=== PATIENT | male | born 1975 | race American Indian/Alaskan Native ===

== ENCOUNTER 2016-09-21 06:14 | Inpatient (IN) | payer OTHER ==
[2016-09-21] MEDS ORDERED: ASPIRIN PO ONE (07:09)
[2016-09-21] MEDS ORDERED: MORPHINE IV ONE ×2 (07:09→11:04)
[2016-09-21] MEDS ORDERED: NITRO-BID 2% TP ONE (07:09)
[2016-09-21] MEDS ORDERED: ZOFRAN IV ONE (07:09)
--- NOTE | 2016-09-21 07:14 | Emergency Department Report ---
HPI - General Time Seen by Provider: 09/21/16 06:57 - HPI HPI: Room 19 The patient is a 41-year-old male presenting with a chief complaint of chest pain. The patient states he was walking and developed substernal squeezing chest pain associated with shortness of breath and diaphoresis. Patient states she may have gotten slightly nauseous. Patient states he "power walking" to the nearest convenience store and begs someone to call EMS. Patient states she still has punching pain which he gives a score of 11/10. The patient states he' s never had a stress test or cardiac catheterization Location: Chest Duration: Constant times today Quality: Squeezing, punching Severity: 11/10 Modifying factors: [see above] Context: [see above] Mode of transportation: [not driving] ED Past Medical Hx - Past Medical History Previous Medical History?: No - Surgical History Past Surgical History?: No - Family History Family history: no significant - Social History Smoking Status: Current Every Day Smoker Substance Use Type: None (denies illicit drug use), Alcohol ED Review of Systems ROS: Stated complaint: CHEST PAIN Other details as noted in HPI Comment: All other systems reviewed and negative Constitutional: diaphoresis Eyes: denies: eye pain, eye discharge, vision change ENT: denies: ear pain, throat pain Respiratory: shortness of breath Cardiovascular: chest pain Endocrine: no symptoms reported Gastrointestinal: nausea Genitourinary: denies: urgency, dysuria Musculoskeletal: denies: back pain, joint swelling, arthralgia Skin: denies: rash, lesions Neurological: denies: headache, weakness, paresthesias Psychiatric: denies: anxiety, depression Hematological/Lymphatic: denies: easy bleeding, easy bruising Physical Exam - Physical Exam Physical Exam: GENERAL: The patient is well-developed well-nourished male sitting on stretcher not appearing to be in acute distress. [] HEENT: Normocephalic. Atraumatic. Extraocular motions are intact. Patient has moist mucous membranes. NECK: Supple. Trachea midline CHEST/LUNGS: Clear to auscultation. There is no respiratory distress noted. HEART/CARDIOVASCULAR: Regular. There is no tachycardia. There is no gallop rub or murmur. ABDOMEN: Abdomen is soft, nontender. Patient has normal bowel sounds. There is no abdominal distention. SKIN: There is no rash. There is no edema. There is no diaphoresis. NEURO: The patient is awake, alert, and oriented. The patient is cooperative. The patient has normal speech MUSCULOSKELETAL: There is no evidence of acute injury. ED Medical Decision Making - Lab Data Result diagrams: 09/21/16 07:14 09/21/16 07:14 Laboratory Tests 09/21/16 09/21/16 09/21/16 07:14 07:14 07:14 WBC 4.6 RBC 4.81 Hgb 13.9 Hct 40.7 MCV 85 MCH 29 MCHC 34 RDW 13.7 Plt Count 160 Lymph % (Auto) 41.6 H Custer % (Auto) 9.1 H Eos % (Auto) 1.1 Baso % (Auto) 0.4 Lymph # 1.9 Custer # 0.4 Eos # 0.0 Baso # 0.0 Seg Neutrophils % 47.8 Seg Neutrophils # 2.2 D-Dimer 408.08 H Sodium 146 H Potassium 3.7 Chloride 106.9 Carbon Dioxide 18 L Anion Gap 25 BUN 13 Creatinine 0.9 Estimated GFR > 60 BUN/Creatinine Ratio 14.44 Glucose 84 Calcium 8.8 Total Creatine Kinase 5144 H CK-MB (CK-2) 39.4 H CK-MB (CK-2) Rel Index 0.7 Troponin T < 0.010 NT-Pro-B Natriuret Pep < 5 - EKG Data -: EKG Interpreted by Me EKG shows normal: sinus rhythm Rate: tachycardia (105 bpm) - EKG Data When compared to previous EKG there are: previous EKG unavailable Interpretation: other (Q waves in leads II, III, and F aVF) - Radiology Data Radiology results: report reviewed (CT chest), image reviewed (chest x-ray, CT chest) interpreted by me: Chest x-ray-no focal infiltrates, no pneumothorax CT chest (read by radiologist) (-no pulmonary embolus and. Multiple right apical bulla. - Differential Diagnosis ACS, exertional angina, pericarditis, GERD Critical care attestation.: If time is entered above; I have spent that time in minutes in the direct care of this critically ill patient, excluding procedure time. ED Disposition Clinical Impression: Chest pain, Rhabdomyolysis Disposition: OP ADMITTED IP TO THIS HOSP Is pt being admited?: Yes Does the pt Need Aspirin: Yes Condition: Fair Instructions: Chest Pain (ED) Referrals: PRIMARY CARE, [Primary Care Provider] - 3-5 Days Time of Disposition: 11:04 (hospitalist paged)
[2016-09-21 07:42] LABS: Basophils % (Auto) 0.4 % (0.0-1.8); Eosinophils % (Auto) 1.1 % (0.0-4.3); Hematocrit 40.7 % (35.5-45.6); Hemoglobin 13.9 gm/dl (11.8-15.2); Mean Corpuscular HGB Conc 34 % (32-34); Mean Corpuscular Hemoglobin 29 pg (28-32); Mean Corpuscular Volume 85 fl (84-94); Platelet Count 160 K/mm3 (140-440); Red Blood Count 4.81 M/mm3 (3.65-5.03); Red Cell Distribution Width 13.7 % (13.2-15.2); White Blood Count 4.6 K/mm3 (4.5-11.0)
[2016-09-21 08:16] LABS: Creatine Kinase MB 39.4 ng/mL (0.0-4.0)
[2016-09-21 08:19] LABS: Anion Gap 25 mmol/L; BUN/Creatinine Ratio 14.44; Blood Urea Nitrogen 13 mg/dL (9-20); Calcium 8.8 mg/dL (8.4-10.2); Carbon Dioxide 18 mmol/L (22-30); Chloride 106.9 mmol/L (98-107); Glucose 84 mg/dL (75-100); Potassium 3.7 mmol/L (3.6-5.0); Sodium 146 mmol/L (137-145)
[2016-09-21 08:38] LABS: Creatine Kinase 5144 units/L (55-170)
--- NOTE | 2016-09-21 09:03 | XRay Report ---
Single view chest: History: Chest pain. Findings: Normal cardiomediastinal silhouette. Trachea is midline. No consolidation, pneumothorax or pleural effusion. Impression: No acute cardiopulmonary findings.
[2016-09-21] MEDS ORDERED: NACL ONE (09:48)
[2016-09-21] MEDS ORDERED: NACL 0.9% 1000 ML 1,000 ML IV ONE (10:03)
--- NOTE | 2016-09-21 10:42 | Cat Scan Report ---
CTA chest: PE protocol. History: Chest pain shortness of breath. Findings: No evidence of aortic aneurysm or pulmonary embolism. No pleural or pericardial effusion. No mediastinal mass. Multiple large right apical bulla. No consolidation. Impression: No pulmonary embolism. Multiple right apical bulla.
[2016-09-21 11:03] LABS: Urine Drugs of Abuse Note Disclamer
[2016-09-21] MEDS ORDERED: MILK OF MAGNESIA PO PRN (12:02)
[2016-09-21] MEDS ORDERED: DULCOLAX PR PRN (12:02)
[2016-09-21] MEDS ORDERED: SODIUM CHLORIDE FLUSH SYRINGE 10 ML IV PRN (12:02)
[2016-09-21] MEDS ORDERED: TYLENOL PO PRN (12:02)
[2016-09-21] MEDS ORDERED: ZOFRAN IV PRN (12:02)
--- NOTE | 2016-09-21 12:02 | History and Physical Report ---
History of Present Illness Date of examination: 09/21/16 Date of admission: 09/21/16 Chief complaint: CP History of present illness: The patient is a 41-year-old male presenting with a chief complaint of chest pain while walking home at 2 AM this morning from a friend's house. The patient states he was walking and developed substernal squeezing chest pain associated with shortness of breath and diaphoresis. Patient also reports nausea but no vomiting. Patient reports the pain is 10/10 in intensity. Patient denies a history of stress test or cardiac catheterization. Patient reports that his brother of an MT at age 43. Patient reports history of cocaine and heroin abuse greater than 15 years ago. He denies any drug abuse recently. Patient does not have a primary care physician and has not seen a physician in several years. Past History Past Medical History: No medical history Past Surgical History: Other (heroin and cocaine abuse) Social history: no significant social history Family history: CAD (brother MT at 43) Medications and Allergies Allergies Allergy/AdvReac Type Severity Reaction Status Date / Time No Known Allergies Allergy Verified 09/21/16 10:00 Home Medications Medication Instructions Recorded Confirmed Last Taken Type No Known Home Medications [No 09/21/16 09/21/16 Unknown History Reported Home Medications] Review of Systems All systems: negative Exam - Constitutional Vitals: Temp Pulse Resp BP Pulse Ox 98.5 F 97 H 17 131/87 100 09/21/16 07:02 09/21/16 08:13 09/21/16 10:00 09/21/16 08:13 09/21/16 08:13 General appearance: Present: no acute distress, well-nourished - EENT Eyes: Present: PERRL ENT: hearing intact, clear oral mucosa - Neck Neck: Present: supple, normal ROM - Respiratory Respiratory effort: normal Respiratory: bilateral: CTA - Cardiovascular Heart Sounds: Present: S1 & S2. Absent: rub, click - Extremities Extremities: pulses symmetrical, No edema Peripheral Pulses: within normal limits - Abdominal General gastrointestinal: Present: soft, non-tender, non-distended, normal bowel sounds Male genitourinary: Present: normal - Integumentary Integumentary: Present: clear, warm, dry - Musculoskeletal Musculoskeletal: gait normal, strength equal bilaterally - Psychiatric Psychiatric: appropriate mood/affect, intact judgment & insight - Neurologic Neurologic: CNII-XII intact, moves all extremities Results - Labs CBC & Chem 7: 09/21/16 07:14 09/21/16 07:14 Labs: Laboratory Last Values WBC 4.6 K/mm3 (4.5-11.0) 09/21/16 07:14 RBC 4.81 M/mm3 (3.65-5.03) 09/21/16 07:14 Hgb 13.9 gm/dl (11.8-15.2) 09/21/16 07:14 Hct 40.7 % (35.5-45.6) 09/21/16 07:14 MCV 85 fl (84-94) 09/21/16 07:14 MCH 29 pg (28-32) 09/21/16 07:14 MCHC 34 % (32-34) 09/21/16 07:14 RDW 13.7 % (13.2-15.2) 09/21/16 07:14 Plt Count 160 K/mm3 (140-440) 09/21/16 07:14 Lymph % (Auto) 41.6 % (13.4-35.0) H 09/21/16 07:14 Martin % (Auto) 9.1 % (0.0-7.3) H 09/21/16 07:14 Eos % (Auto) 1.1 % (0.0-4.3) 09/21/16 07:14 Baso % (Auto) 0.4 % (0.0-1.8) 09/21/16 07:14 Lymph # 1.9 K/mm3 (1.2-5.4) 09/21/16 07:14 Martin # 0.4 K/mm3 (0.0-0.8) 09/21/16 07:14 Eos # 0.0 K/mm3 (0.0-0.4) 09/21/16 07:14 Baso # 0.0 K/mm3 (0.0-0.1) 09/21/16 07:14 Seg Neutrophils % 47.8 % (40.0-70.0) 09/21/16 07:14 Seg Neutrophils # 2.2 K/mm3 (1.8-7.7) 09/21/16 07:14 D-Dimer 408.08 ng/mlDDU (0-234) H 09/21/16 07:14 Sodium 146 mmol/L (137-145) H 09/21/16 07:14 Potassium 3.7 mmol/L (3.6-5.0) 09/21/16 07:14 Chloride 106.9 mmol/L (98-107) 09/21/16 07:14 Carbon Dioxide 18 mmol/L (22-30) L 09/21/16 07:14 Anion Gap 25 mmol/L 09/21/16 07:14 BUN 13 mg/dL (9-20) 09/21/16 07:14 Creatinine 0.9 mg/dL (0.8-1.5) 09/21/16 07:14 Estimated GFR > 60 ml/min 09/21/16 07:14 BUN/Creatinine Ratio 14.44 % 09/21/16 07:14 Glucose 84 mg/dL (75-100) 09/21/16 07:14 Calcium 8.8 mg/dL (8.4-10.2) 09/21/16 07:14 Total Creatine Kinase 5144 units/L (55-170) H 09/21/16 07:14 CK-MB (CK-2) 39.4 ng/mL (0.0-4.0) H 09/21/16 07:14 CK-MB (CK-2) Rel Index 0.7 (0-4) 09/21/16 07:14 Troponin T < 0.010 ng/mL (0.00-0.029) 09/21/16 07:14 NT-Pro-B Natriuret Pep < 5 pg/mL (0-450) 09/21/16 07:14 Urine Methadone Screen Presumptive negative 09/21/16 10:50 Ur Barbiturates Screen Presumptive negative 09/21/16 10:50 Ur Phencyclidine Scrn Presumptive negative 09/21/16 10:50 Ur Amphetamines Screen Presumptive negative 09/21/16 10:50 U Benzodiazepines Scrn Presumptive negative 09/21/16 10:50 U Marijuana (THC) Screen Presumptive negative 09/21/16 10:50 Assessment and Plan Assessment and plan: 1. Chest pain. Patient does have significant family history with an MT of brother at age 43. Patient will be placed on the chest pain protocol and have follow-up echocardiogram as well as stress thallium. Consider cardiology consultation. 2. History of cocaine and heroin abuse. Check urine drug screen.
[2016-09-21 13:37] LABS: Creatine Kinase 4042 units/L (55-170)
[2016-09-21] MEDS: MORPHINE IV PRN ×2 (14:10→20:26)
[2016-09-21] MEDS: NACL 0.9% 1000 ML 1,000 ML IV SCH (14:22)
[2016-09-21 15:48] LABS: Creatine Kinase MB 25.5 ng/mL (0.0-4.0)
[2016-09-21 16:09] LABS: Creatine Kinase 3716 units/L (55-170)
[2016-09-21 19:12] LABS: Creatine Kinase MB 27.1 ng/mL (0.0-4.0)
[2016-09-21 19:39] LABS: Creatine Kinase 3620 units/L (55-170)
[2016-09-22] MEDS: MORPHINE IV PRN (02:01)
[2016-09-22 06:15] LABS: Basophils % (Auto) 0.3 % (0.0-1.8); Eosinophils % (Auto) 2.9 % (0.0-4.3); Hematocrit 37.4 % (35.5-45.6); Hemoglobin 12.8 gm/dl (11.8-15.2); Mean Corpuscular HGB Conc 34 % (32-34); Mean Corpuscular Hemoglobin 29 pg (28-32); Mean Corpuscular Volume 85 fl (84-94); Platelet Count 143 K/mm3 (140-440); Red Cell Distribution Width 13.9 % (13.2-15.2); White Blood Count 4.7 K/mm3 (4.5-11.0)
[2016-09-22] MEDS: NACL 0.9% 1000 ML 1,000 ML IV SCH (06:33)
[2016-09-22 06:35] LABS: Blood Urea Nitrogen 12 mg/dL (9-20); Calcium 8.8 mg/dL (8.4-10.2); Carbon Dioxide 22 mmol/L (22-30); Glucose 112 mg/dL (75-100)
[2016-09-22 06:36] LABS: Anion Gap 18 mmol/L; Chloride 103.8 mmol/L (98-107); Potassium 3.7 mmol/L (3.6-5.0); Sodium 140 mmol/L (137-145)
[2016-09-22] MEDS ORDERED: LEXISCAN IV ONE ×2 (08:49→08:53)
[2016-09-22] MEDS ORDERED: LOVENOX SUB-Q SCH (10:00)
[2016-09-22 10:21] VITALS: BP 178/106
--- NOTE | 2016-09-22 10:42 | Discharge Summary ---
Providers - Providers Date of Admission: 09/21/16 12:02 Date of discharge: 09/22/16 Attending physician: MICHAEL ROGERS Primary care physician: RASHMI NARVAEZ MD Hospitalization Reason for admission: CP Condition: Fair Hospital course: 41-year-old male who was admitted on 09/21/16 with diagnosis of chest pain and rhabdomyolysis. Patient's CK level was elevated at 5144 but decreased to 3000 range with IV fluid hydration. Patient's kidney function remained stable. Patient's troponin and EKGs were found to be unremarkable. Patient underwent a stress thallium which was found to be negative. Patient was felt to have received maximal hospital benefit and therefore will be discharged home. Dedicated discharge time 32 minutes. Disposition: DISCHARGED TO HOME OR SELFCARE Time spent for discharge: 32 - Discharge Diagnoses (1) Chest pain Status: Acute Qualifiers: Chest pain type: C (2) Rhabdomyolysis Status: Acute Qualifiers: Rhabdomyolysis type: R Encounter type: E (3) GERD (gastroesophageal reflux disease) Status: Acute Qualifiers: Esophagitis presence: E Core Measure Documentation - Palliative Care Palliative Care/ Comfort Measures: Not Applicable - Core Measures Any of the following diagnoses?: none Exam - Constitutional Vitals: Temp Pulse Resp BP Pulse Ox 98.0 F 61 20 178/106 98 09/22/16 04:50 09/22/16 10:00 09/22/16 10:00 09/22/16 09:31 09/22/16 10:00 General appearance: Present: no acute distress, well-nourished - EENT Eyes: Present: PERRL ENT: hearing intact, clear oral mucosa - Neck Neck: Present: supple, normal ROM - Respiratory Respiratory effort: normal Respiratory: bilateral: CTA - Cardiovascular Heart Sounds: Present: S1 & S2. Absent: rub, click - Extremities Extremities: pulses symmetrical, No edema Peripheral Pulses: within normal limits - Abdominal General gastrointestinal: Present: soft, non-tender, non-distended, normal bowel sounds Male genitourinary: Present: normal - Integumentary Integumentary: Present: clear, warm, dry - Musculoskeletal Musculoskeletal: gait normal, strength equal bilaterally - Psychiatric Psychiatric: appropriate mood/affect, intact judgment & insight - Neurologic Neurologic: CNII-XII intact, moves all extremities Plan Activity: no restrictions Weight Bearing Status: Full Weight Bearing Diet: regular Follow up with: PRIMARY CARE, [Primary Care Provider] - 3-5 Days Prescriptions: Pantoprazole [Protonix] 40 mg PO QDAY #30 tablet
--- NOTE | 2016-09-22 19:39 | Admit Criteria Form ---
Admission Criteria Documentation: CHEST PAIN Clinical Indications for Admission to Inpatient Care (Place 'X' for any and all applicable criteria): Admission is indicated for chest pain and ANY ONE of the following(1)(2)(3)(4)(5 ): [ ]I. Angina with acute coronary syndrome (Also use Myocardial Infarction or Angina guideline) [ ]II. Hemodynamic instability [ ]III. Angina needing acute intervention as indicated by ALL of the following( 11)(12): [ ]a) Unstable angina is present as indicated by angina that is ANY ONE of the following: [ ]i) New onset [ ]ii) Nocturnal [ ]iii) Prolonged at rest [ ]iv) Progressive [ ]b) Angina warrants acute intervention as indicated by ANY ONE of the following: [ ]i) Recurrent angina (e.g, not responding as previously to treatment) [ ]ii) Angina at rest or with low-level activities despite initial medical therapy [ ]iii) New or presumably new ST-segment depression on ECG [ ]iv) Signs or symptoms of heart failure (eg, dyspnea, pulmonary edema) [ ]v) New or worsening mitral regurgitation [ ]vi) Hemodynamic instability [ ]vii) Dangerous arrhythmia (eg, sustained ventricular tachycardia) [ ]viii) History of percutaneous coronary intervention within 6 months [ ]ix) History of coronary artery bypass graft surgery [ ]x) KEIRY risk score of 2 or greater[A] [ ]xi) History of Diabetes(14) [ ]xii) High-risk cardiac ischemia findings on noninvasive testing (e.g, echocardiogram, treadmill testing, nuclear scan) [ ]xiii) Chronic renal insufficiency (ie, estimated GFR less than 60 mL/min/1.732m) [ ]xiv) Left ventricular ejection fraction less than 40% [ ]IV. Evidence of TN (eg, cardiac biomarkers positive, ST-segment elevation on ECG) also use Myocardial Infarction Criteria Form. [ ]V. Pulmonary edema [ ]. Respiratory distress [ ]VII. Chest pain indicative of serious diagnosis other than coronary artery disease (eg, aortic dissection) [ ]VIII. Contraindications and/or Inappropriate clinical situations for Observational Care in patients with Chest Pain, when ANY ONE of the following is required: [ ]a) Patient with risk factor for pulmonary embolism, acute coronary syndrome and myocardial infarction (18) [ ]b) Patient with Pulmonary embolism require an average LOS of 4.3 days, therefore emergency department observation management is inappropriate 18,23 [ ]c) Painful condition/s in the elderly, have the highest rate of recidivism after emergency department observation management (10.8%) 20,21,22 [ ]d) Elevated cardiac biomarker requires intensive and exhaustive care (19) [X ]IX. General contraindications and/or Inappropriate clinical situations for Observational Care in patients with Chest Pain, when ANY ONE of the following is required: [X ]a) Prediction of prolongation of LOS based on ANY ONE of the following may be considered as a contraindication for observational care 2, 3, 4, 5, 6, 7, 8, 9, 10, 11 [ ]i) Age > 65 yrs. [ X]ii) Patient arriving by ambulance [ ]iii) Patient with high acuity [ ]iv) Patient requiring vital sign monitoring [ ]v) Patient on IV medication [ ]b) Systolic blood pressures 180mmHg 3,12 [ ]c) Patient with altered mental status including delirium and other alteration of consciousness, (3) [ ]d) Patient whose discharge disposition will be to a [facility] home or rehabilitation home should not be managed in Emergency Department Observation Unit. CMS rule requires 3 days hospital stay before such placement. 3,13 [ ]e) Patient with failure to thrive due to broad array of etiologies 3,16,17 [ ]f) Inability to ambulate 3,14 Extended stay beyond goal length of stay may be needed for (1)(28): [ ]a) Specific condition diagnosed after evaluation (eg, pulmonary embolism, aortic dissection) [ ]b) Unstable angina [ ]c) Continued suspicion of acute coronary syndrome with inability to complete needed cardiac evaluation (eg, patient clinically unable to undergo stress testing) [ ]d) Myocardial infarction (Contents from ANGINA and CHEST PAIN clinical indications for admission to inpatient care have been integrated in this form) The original [facility] content created by [employer] has been revised. The portions of the content which have been revised are identified through the use of italic text or in bold, and [facility] [employer] has neither reviewed nor approved the modified material. All other unmodified content is copyright [facility]. Please see references footnoted in the original [facility] [employer] edition 2016 Admission Criteria Met: Yes
== END 2016-09-22 17:30 | disposition home or self-care (01) | DRG 313 ==
LOC: ED 06:14 → 4A 12:02
PROVIDERS: ADMIT Hospitalist; ATTEND Hospitalist
PROC: 4A02XM4 Measurement of Cardiac Total Activity, External Approach (ICD-10-PCS; principal; 2016-09-21)
DX: R07.9 Chest pain, unspecified (principal); M62.82 Rhabdomyolysis; K21.9 Gastro-esophageal reflux disease without esophagitis; F17.210 Nicotine dependence, cigarettes, uncomplicated; Z82.49 Family history of ischemic heart disease and other diseases of the circulatory system
CPT/HCPCS: 36415; 71010; 71275; 78452; 80048; 80307; 82550; 82553; 83880; 84484; 85025; 85379; 93005; 93010; 93017; 93306; 96361; 96374; 96375; 96376; 99406; A9502; J2270; J2405; J2785; J7030; Q9967

== ENCOUNTER 2016-09-22 20:23 | Emergency (ER) | payer SELFPAY ==
[2016-09-23 02:51] VITALS: BP 148/105
[2016-09-23] MEDS ORDERED: TORADOL IM ONE (03:36)
[2016-09-23] MEDS ORDERED: DUONEB 0.5 MG-3 MG/3 ML SOLN IH ONE (03:36)
--- NOTE | 2016-09-23 04:22 | Emergency Department Report ---
HPI - General Chief Complaint: Chest Pain Time Seen by Provider: 09/23/16 03:08 - HPI HPI: This is a 41-year-old -[place] male who presents to the emergency department with complaint of generalized chest pain. The patient was discharged from [facility] this afternoon after having a full cardiac workup here including an echocardiogram and negative stress test. He left the hospital and was walking towards the gas station smoking cigarettes when he says that the chest pain came back, along with some shortness of breath, that he return to the ER for further evaluation. Patient denies any history of KS, CVA, PE/DVT. He has a family history which his brother from an KS at 43 years of age. His last urine drug screen was positive for cocaine. ED Past Medical Hx - Past Medical History Previous Medical History?: Yes Hx Congestive Heart Failure: No Hx Diabetes: No Hx Asthma: No Hx COPD: No Additional medical history: Dialysis 2006 - Surgical History Past Surgical History?: Yes - Social History Smoking Status: Current Some Day Smoker Substance Use Type: None - Medications Home Medications: Home Medications Medication Instructions Recorded Confirmed Last Taken Type Pantoprazole [Protonix] 40 mg PO QDAY #30 tablet 09/22/16 Unknown Rx ED Review of Systems ROS: Stated complaint: RT SIDE NUMBNESS/MARY Other details as noted in HPI Comment: All other systems reviewed and negative Constitutional: denies: chills, fever Eyes: denies: eye pain, eye discharge, vision change ENT: denies: ear pain, throat pain Respiratory: shortness of breath. denies: cough Cardiovascular: chest pain. denies: palpitations Gastrointestinal: denies: abdominal pain, nausea, diarrhea Genitourinary: denies: urgency, dysuria Musculoskeletal: denies: back pain, joint swelling, arthralgia Skin: denies: rash, lesions Neurological: denies: headache, weakness, paresthesias Physical Exam - Physical Exam Vital Signs: Vital Signs 09/22/16 09/23/16 09/23/16 21:07 02:38 02:41 Temperature 98.1 F Pulse Rate 115 H 100 H 101 H Pulse Rate [ Throughout] Respiratory 18 18 20 Rate Respiratory Rate [ Throughout] Blood Pressure 145/107 148/105 O2 Sat by Pulse 100 99 Oximetry 09/23/16 09/23/16 04:07 04:17 Temperature Pulse Rate Pulse Rate [ 91 H 95 H Throughout] Respiratory Rate Respiratory 16 16 Rate [ Throughout] Blood Pressure O2 Sat by Pulse Oximetry Physical Exam: GENERAL: The patient is well-developed well-nourished. HEENT: Normocephalic. Atraumatic. Extraocular motions are intact. Patient has moist mucous membranes. Pupils equal reactive to light bilaterally. NECK: Supple. Trachea is midline. CHEST/LUNGS: Clear to auscultation. There is no respiratory distress noted. HEART/CARDIOVASCULAR: Regular. There is no tachycardia. There is no gallop rub or murmur. ABDOMEN: Abdomen is soft, nontender. Patient has normal bowel sounds. There is no abdominal distention. SKIN: There is no rash. There is no edema. There is no diaphoresis. NEURO: The patient is awake, alert, and oriented. The patient is cooperative. The patient has no focal neurologic deficits. The patient has normal speech. MUSCULOSKELETAL: There is no tenderness or deformity. There is no limitation range of motion. There is no evidence of acute injury. ED Course Vital Signs 09/22/16 09/23/16 09/23/16 21:07 02:38 02:41 Temperature 98.1 F Pulse Rate 115 H 100 H 101 H Pulse Rate [ Throughout] Respiratory 18 18 20 Rate Respiratory Rate [ Throughout] Blood Pressure 145/107 148/105 O2 Sat by Pulse 100 99 Oximetry 09/23/16 09/23/16 04:07 04:17 Temperature Pulse Rate Pulse Rate [ 91 H 95 H Throughout] Respiratory Rate Respiratory 16 16 Rate [ Throughout] Blood Pressure O2 Sat by Pulse Oximetry ED Medical Decision Making - EKG Data -: EKG Interpreted by Dc EKG shows normal: sinus rhythm, axis, intervals, QRS complexes, ST-T waves Rate: normal - EKG Data When compared to previous EKG there are: no significant change Interpretation: normal EKG, unchanged when compared t (09/22/16) - Medical Decision Making This is a 41-year-old male presents to the emergency department with the complaint of the return of some chest pain, only a short time after being discharged from [facility] after completing a full cardiac workup that included a negative stress test and echocardiogram. Patient has normal sounding heart and lungs auscultation. In EKG was done that is normal without ST elevation KS, ischemia or dysrhythmia. Patient had another troponin checked that also came back negative. On top of the negative stress test, the patient had previously had a normal- appearing chest x-ray, a CT angiography of the chest that was negative for pulmonary embolism. The patient himself only has the risk factor of his brother passing from early coronary artery disease. The patient was given a shot of Toradol and a breathing treatment. Upon reevaluation he says he is feeling better. During each reevaluation the patient is resting comfortably sleeping on the gurney. With his previously negative workup and the negative troponins today and the fact that the patient is feeling better, I feel the patient is safe for discharge home to follow-up with cardiology. He has been encouraged to return to the emergency department with any worsening of his symptoms or any acute distress. Critical Care Time: No Critical care attestation.: If time is entered above; I have spent that time in minutes in the direct care of this critically ill patient, excluding procedure time. ED Disposition Clinical Impression: Chest pain Qualifiers: Chest pain type: unspecified Qualified Code(s): R07.9 - Chest pain, unspecified Disposition: DISCHARGED TO HOME OR SELFCARE Is pt being admited?: No Condition: Stable Instructions: Chest Pain (ED) Additional Instructions: Please follow-up with a primary care doctor in the next few days. I will give you a referral for a local event coordinator marketing and sales, Dr. Angel, to follow up regarding her chest pain. Return to the emergency department with any acute distress. Referrals: RASHMI NARVAEZ MD [Primary Care Provider] - 3-5 Days MITCH RICE MD [Staff Physician] - 3-5 Days RASHAD ANGEL MD [Staff Physician] - 3-5 Days [facility] [Outside] - 3-5 Days Time of Disposition: 04:54
== END 2016-09-23 05:15 | disposition home or self-care (01) ==
LOC: ED 20:23
DX: R07.9 Chest pain, unspecified (principal); Z72.0 Tobacco use
CPT/HCPCS: 36415; 84484; 93005; 93010; 94640; 96372; 99284; J1885